=== PATIENT | female | born 1940 | race Caucasian/White ===

== ENCOUNTER 2016-07-19 13:43 | Inpatient (IN) | payer MEDICARE ==
[~2016-07-19] VITALS: Ht 157.5 cm; Wt 55.4 kg
[2016-07-19 15:10] VITALS: PULSE 75
[2016-07-19 15:11] VITALS: BP 118/54; PULSE 80; RESP 17; O2SAT 100
[2016-07-19] MEDS ORDERED: METO-272 PO (15:40)
--- NOTE | 2016-07-19 16:07 | NUR ---
Admit Patient admitted from [facility] ED where she presented with dyspnea and fatigue and was found to be in A fib with RVR. Per report from ED RN patient was cardioverted 3 times, the third time being successful at converting her to SR. patient SR in the 80s since arrival on the floor. Patient A&Ox3, VSS, denies pain. C/O dyspnea with activity. SPO2 remains in the high 90s on 2L NC. Patient oriented to rrom and call light. Resting in bed with eyes closed, call light with in reach.
[2016-07-19] MEDS ORDERED: FLUT9.9S NASAL (16:43)
[2016-07-19] MEDS ORDERED: MONT10TA23 PO (16:43)
[2016-07-19] MEDS ORDERED: BENZ100C8 PO (16:43)
[2016-07-19] MEDS ORDERED: DOXY100C PO (16:43)
[2016-07-19] MEDS ORDERED: RANI150C4 PO (16:43)
[2016-07-19] MEDS ORDERED: CHOL100045 PO (16:43)
[2016-07-19] MEDS ORDERED: PARO10TA2 PO (16:43)
[2016-07-19] MEDS ORDERED: ASCO250T7 PO (16:43)
[2016-07-19] MEDS ORDERED: RIVA20TA PO (16:43)
[2016-07-19] MEDS ORDERED: ATOR20TA PO (16:43)
[2016-07-19] MEDS ORDERED: MULT1CAP33 PO (16:43)
[2016-07-19] MEDS ORDERED: GLUC1TAB20 PO (16:43)
[2016-07-19] MEDS ORDERED: ALBU8.5H2 INHALATION (16:43)
--- NOTE | 2016-07-19 16:43 | NUR ---
Med Rec Patients med rec done per med list recieved from [facility] and patient verification. Faxed Antoinette in [place] to request official med list.
--- NOTE | 2016-07-19 17:03 | CONS ---
[address] [address] CONSULTATION REPORT PATIENT: ROBERT STEVENS : 1940 MR#: [id number] ADMIT: 07/19/2016 JOB ID: [id number] DATE OF SERVICE: 07/19/2016 CARDIOLOGY CONSULT: REASON FOR CONSULT: For the evaluation of atrial fibrillation with fast ventricular rate. CHIEF COMPLAINT: From last nine or 10 days she has been having worsening cough with yellowish, sputum shortness of breath, some pleuritic type of chest pain, malaise, fatigue. 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 Sanchez in [place] and was started on anticoagulation about two and half years ago, also has a loop recorder which was implanted by Dr. Loving in [place] as she has established social science teacher over there as well, details not available, on Xarelto and metoprolol for a long time, history of essential hypertension, intermittent hyperlipidemia, got admitted because of above-mentioned chief complaint. Today she was seen at [facility] because of above-mentioned symptoms. According to the patient, her symptoms started about nine or 10 days ago when she started having cough which started getting worse, with yellowish productive sputum. This Sunday she was seen by PCP, who started her on antibiotics for right side pneumonia. She continued to deteriorate. She had diarrhea. Upon standing she was getting lightheadedness, hence she was seen at the [facility]. During evaluation she was found to have atrial fibrillation with fast ventricular rate. She was already on anticoagulation, hence ER physician tried to cardiovert her. She had multiple attempts which were successful only briefly, but later on the patient converted to sinus rhythm spontaneously. She was started on amiodarone drip. She was referred to our facility for further management. At present, she is lying on bed. She is still coughing. She is not having any typical anginal chest pain. She denies any fever, chills, or PND, orthopnea. At present she is not actively wheezing. She denies any known history of coronary artery disease or myocardial infarction or congestive heart failure or rheumatic heart disease or sudden cardiac in the family. According to the [facility] note she had an echocardiogram in March 2015 and at that time LV ejection fraction was 65%. I do not have the official report. There is a history of excessive caffeine intake, however she denies any alcohol intake for the last four years. No history of sleep apnea. No active bleeding issues. PAST MEDICAL HISTORY: History of WPW syndrome for which she underwent ablation in 1994 and 2000 in [place]. On top of that, the patient has paroxysmal AFIB for which she sees Dr. Sanchez in [place], on anticoagulation for a long time with Xarelto 20 mg daily as well as metoprolol 20 mg daily. History of loop recorder, essential hypertension, hyperlipidemia, breast surgery, breast cyst removal, hysterectomy, tonsillectomy, oophorectomy. PAST SURGICAL HISTORY: As stated above. ALLERGIES: CODEINE AND HYDROCODONE. SOCIAL HISTORY: Denies any current tobacco abuse or alcohol abuse. FAMILY HISTORY: Positive for stroke, hypertension, dementia. REVIEW OF SYSTEMS: Ten point review of systems were obtained and they are negative except as stated above. MEDICATIONS: Atorvastatin 20 mg daily. Vitamins. She was on doxycycline 100 mg twice a daily. Albuterol inhaler, metoprolol succinate 50 mg daily and 25 mg additional if she feels palpitations, Singulair 10 mg daily, Flexeril 2.5 mg daily, Xarelto 20 mg daily, ranitidine 150 mg twice a day, multivitamins. PHYSICAL EXAMINATION: Blood pressure 118/54, heart rate 80, respiratory rate 17, oxygen saturation 100%. HEENT: No significant anemia, jaundice. Neck: No apparent JVP or carotid bruit. Chest: No obvious crepitation or rhonchi. CVS: S1, S2 normal. No S3, no S4. No significant murmur. Abdomen: No obvious pulsatile mass. No obvious hepatosplenomegaly. Extremities: No significant pedal edema. Vascular: No evidence of critical limb ischemia. MICROECONOMICS PROFESSOR: Alert. Oriented to time, place, and person. No obvious motor or sensory deficit. According to the notes from [facility] her sodium was 128, calcium 8.3, hematocrit 34.7. I do not have the other results. EKG today at 9:43 a.m. at [facility] revealed underlying atrial flutter/fib with narrow QRS complexes, rate about 133, with QTc about 455 msec. During sinus rhythm the patient had heart rate about 95. CA interval 156 msec. There is no short CA interval. I do not see any obvious pre-excitation phenomena. No significant ST-T changes. The patient has some PACs as well. ASSESSMENT AND PLAN: Episode of atrial flutter/fibrillation in the setting of pneumonia with fast ventricular rate status post multiple cardioversions with known history of paroxysmal atrial fibrillation on top of history of Vcdov-[id number]-Nxflj syndrome for which she underwent ablation in 1994 in 2000, which according to the patient was taken care of without any recurrence of tachycardia due to WPW syndrome. Clinically, on my physical examination at present, she is in sinus rhythm. On telemetry she is in sinus rhythm as well. During sinus rhythm the patient does not have evidence of pre-excitation. CA interval is not short. QRS is not wide. The patient has established senior report developer, Dr. Sanchez, in [place] whom she saw about six months ago. She also has a loop recorder which was imparted by her social science teacher in [place]. She was started on amiodarone drip at [facility] [place] today. For short term, up until tomorrow, we will continue to prevent recurrence of atrial fibrillation. However, I do not think that she will need long-term amiodarone. Will discontinue amiodarone tomorrow. Once pneumonia gets better, I think flutter and atrial fibrillation will get better as well. According to her, she does not get frequent episodes of atrial fibrillation or flutter. She was taking metoprolol succinate 50 mg once a day. At present, she is not actively wheezing. From tomorrow onward will recommend increasing metoprolol succinate to 50 mg in the morning and 25 mg in the evening and continue Xarelto 20 mg once a day. Repeat a limited echo to make sure there is no new structural heart disease or LV dysfunction. Check all the electrolytes as well as TSH. Stop amiodarone in the morning. Once she feels better and pneumonia gets better we will recommend her to be seen by her regular senior report developer, Dr. Sanchez in [place]. She has hyponatremia which is likely due to underlying pneumonia, which may be atypical pneumonia which can cause hyponatremia. Further workup I will leave up to the hospitalist team. Thanks for the cardiology consult. TIME: Total time spent today about 70 minutes.
[2016-07-19] MEDS ORDERED: Fluticasone 0.05% 15 Spray/2 Gm 16 Gm Nasal Spray NASAL PRN (18:20)
[2016-07-19] MEDS ORDERED: Amiodarone 150 mg/100 mL D5W 150 MG in IV Premix 1 EACH IV ONE (18:25)
[2016-07-19] MEDS ORDERED: Amiodarone 360 mg/200 mL D5W Premix IV ONE ×2 (19:18→23:00)
[2016-07-19] MEDS ORDERED: IV Premix 1 EACH IV ONE ×2 (19:18→23:00)
[2016-07-19 19:30] VITALS: BP 101/47; PULSE 90; RESP 23; O2SAT 99
[2016-07-19] MEDS: Amiodarone 360 mg/200 mL D5W 360 MG, Filter, Taxol 14256-28 1 EACH in IV Premix 1 EACH IV SCH (19:31)
--- NOTE | 2016-07-19 19:59 | PCM.HPMED ---
Subjective Date of Service Jul 19, 2016 Primary Provider: Admitting Physician: Brett Randle MD Primary Care Physician: David Shoemaker MD Attending Physician: Brett Randle MD Chief Complaint: Atrial fibrillation with rapid ventricular response History of Present Illness: This is a 76 is a female with past medical history of hypertension, hyperlipidemia, blood disorder, paroxysmal atrial fibrillation was transferred to [facility] due to refractory atrial fibrillation with rapid ventricular response. This Sunday she was seen by PCP, who started her on antibiotics for right side pneumonia. She continued to deteriorate. She had diarrhea. Upon standing she was getting lightheadedness, hence she was seen at the [facility] at Sunday. During evaluation she was found to have atrial fibrillation with fast ventricular rate. She was already on anticoagulation, hence ER physician tried to cardiovert her. She had multiple attempts which were successful only briefly, but later on the patient converted to sinus rhythm spontaneously. She was started on amiodarone drip. She was referred to our facility for further management. At the time of examination patient was already on amiodarone drip and sole seamer shows, sinus rhythm Review of Systems: A comprehensive 10 point is negative except for what is described above in history of present illness. Allergies Coded Allergies: azithromycin (Verified Adverse Reaction, Intermediate, Nausea,Vomiting, ) codeine (Verified Adverse Reaction, Intermediate, Nausea,Vomiting, 07/19/16 ) Home Medications Xarelto; 20 mg orally daily, [id number] mg orally twice a day, paroxetine 10 mg PO daily, ranitidine 150 mg , Metoprolol ER 50 mg PO daily, fluticasone inhaler, Montelukast 10 mg, atorvastatin 20 mg, [facility] Hypertension, hypercholesterol, paroxysmal atrial fibrillation Surgical History breast cyst removal, hysterectomy, tonsillectomy, oophorectomy. Family History Family history reviewed. 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 HEENT: PERRL, sclerae anicteric, no bulging tympanic membrane Mouth: moist oral mucosa, no oral thrush Chest: No chest wall tenderness, no deformity, normal etc. Lungs: Clear bilaterally to auscultation, no wheezing, no crackle. Heart: S1S2, irregular rate and rhythm no gallop no murmur. Abdomen: Soft nontender, nondistended. No palpable mass. Extremity: No edema, no cyanosis, tenderness Neuro : Awake, alert, oriented 3. Mostly nonfocal Lab and Diagnostics Labs Pending X-Rays, CTs and MRIs Report of x-ray done at [facility] reviewed No acute cardiopulmonary disease 12-lead ECG Normal sinus rhythm Assessment & Plan 1. Atrial Fibrillation with rapid ventricular response : Patient had cardioversion 3 today and hospital, and return to A. fib with RVR each time. She eventually converted to normal sinus rhythm after amiodarone drip. Seen by cardiology accommodation is to continue amiodarone drip overnight and discontinue in the morning. She is additionally on metoprolol. Continue Xarelto 20 mg orally daily for stroke prevention. Patient is known to have history of paroxysmal atrial fibrillation. This episode was likely provoked by her respiratory infection 2. Pneumonia : Improved Continue doxycycline to complete 7 days . 3. Hypertension : Controlled Patient is clinically and hemodynamically improved. Plan of care as above, Echocardiogram pending/ Discharge home once cleared by surgery VTE Prophylaxis: Other (on anticoagulation with Xarelto ) Time spent 75 minutes Antwan Verdugo MD Jul 19, 2016 19:59
[2016-07-19] MEDS: PARoxetine 20 mg Tablet PO SCH (20:53)
[2016-07-19 23:17] VITALS: BP 106/48; PULSE 75; RESP 19; O2SAT 94
[2016-07-20] VITALS (8 sets, daily range): BP systolic 110–157; BP diastolic 57–89; PULSE 70–98; RESP 18–20; O2SAT 94–97
[2016-07-20] MEDS: Amiodarone 360 mg/200 mL D5W 360 MG, Filter, Taxol 14256-28 1 EACH in IV Premix 1 EACH IV SCH (01:39)
[2016-07-20 03:03] LABS: Mean Corpuscular Hemoglobin 29.8 pg (27.0-35.0); Mean Corpuscular Volume 90.4 fL (81-100)
--- NOTE | 2016-07-20 05:29 | NUR ---
Tele/ Amiodarone Pt A&O X3, moves all extremities. No c/o SOB, RA sats 94-99%. No c/o chest pain, pressure or palpitations, Tele SR with frequent PACs, HR 70-90s. VSS and afebrile. IV Amiodarone drip infusing overnight per MD orders, currently at 16.7mls/hour. Pt up to BSC with SBA, gait steady.
[2016-07-20] MEDS: MeTOProlol XL 50 mg ER24 Tablet PO SCH (09:07)
[2016-07-20] MEDS ORDERED: HYDROCODONE PO PRN ×2 (11:05→11:45)
[2016-07-20] MEDS ORDERED: HOMATROPINE PO PRN (11:05)
[2016-07-20 11:40] LABS: COLOR,URINE STRAW (YELLOW)
[2016-07-20 11:41] LABS: APPEARANCE,URINE CLEAR (CLEAR,HAZY); OCCULT BLOOD,URINE NEGATIVE (NEGATIVE); PH,URINE 5.5 (5.0-8.0); UROBILINOGEN,URINE NORMAL (NORMAL)
[2016-07-20] MEDS ORDERED: HOMATROP PO PRN (11:45)
--- NOTE | 2016-07-20 11:59 | DRSVH ---
[facility] [address] [place] [address] Echocardiogram Report Name: ROBERT STEVENS Date: 07/19/2016 Height: 62 in Hospital Exam Location: [facility] Weight: 124 lb Gender: Female BSA: 1.6 m2 : 1940 Age: 76 yrs BP: 118/54 mmHg Reason For Study: Atrial fibrillation Performed By: Yvette Khanna Referring Physician: GEORGE MACHADO Interpretation Summary The left ventricle is normal in size. The ejection fraction is estimated to be 65-70%. The right ventricle is normal size. The right ventricular systolic function is normal. The left atrium is severely dilated. There is moderate mitral regurgitation. The mitral regurgitant jet is eccentrically directed. There is moderate tricuspid regurgitation. The right ventricular systolic pressure is estimated at 27 mmHg assuming a right atrial pressure of 3 mm Hg. Procedure: A two-dimensional transthoracic echocardiogram with color flow and Doppler was performed. The study quality was technically good. There is no prior echocardiogram noted for this patient. The patient was in normal sinus rhythm during the exam. Left Ventricle: The left ventricle is normal in size. Proximal septal thickening is noted. There is no echo evidence for significant left ventricular outflow tract obstruction. There is no thrombus. A false chord is noted (normal variant). The ejection fraction is estimated to be 65-70%. There are no focal wall motion abnormalities. Spectral Doppler of the mitral valve shows a normal E/A wave ratio. The E/E' ratio is abnormal. Right Ventricle: The right ventricle is normal size. The right ventricular systolic function is normal. Atria: The left atrium is severely dilated. The right atrium is mildly dilated. The interatrial septum is intact with no evidence for an atrial septal defect. Mitral Valve: There is mild mitral annular calcification. The mitral valve leaflets are slightly calcified. There is moderate mitral regurgitation. The mitral regurgitant jet is eccentrically directed. Aortic Valve: The aortic valve is trileaflet. The aortic valve opens well. No aortic regurgitation is present. Tricuspid Valve: The tricuspid valve is normal. There is moderate tricuspid regurgitation. The right ventricular systolic pressure is estimated at 27 mmHg assuming a right atrial pressure of 3 mm Hg. Pulmonic Valve: The pulmonic valve is not well visualized. Great Vessels: The aortic root is normal size. The IVC is of normal diameter and collapses greater than 50% with a sniff. This suggests a low right atrial pressure of 3 mm Hg. Pericardium/ Pleura There is no pericardial effusion. There is an anterior echo-free space consistent with a fat pad. There is no pleural effusion. MMode/2D Measurements & Calculations LVIDd: 4.2 cm LA dimension: 3.5 cm RA long axis Ao root diam LVIDs: 2.6 cm FS: 36.9 % LA A2 area: 26.8 cm RA area Aortic Jxn IVSd: 0.79 cm LA A4 area: 23.6 cm : 2.7 cm LVPWd: 0.78 cm LA length (vol): 5.5 cm : 13.7 cm LA vol: 97.1 ml RA vol: 36.2 ml LA vol index RA : 23.2 mm2 IVC diam: 1.6 cm LV acosta. diameter/BSA LV sys. diameter/BSA (cm/m^2): 2.7 (cm/m^2): 1.7 Doppler Measurements & Calculations MV E max john MV E/A: 1.8 TR max john MV dec time : 163.3 cm/sec Med Peak E' John : 245.4 cm/sec : 0.18 sec MV A max john TR max PG : 93.2 cm/sec E/E' med: 18.1 : 24.1 mmHg MV P1/2t: 56.1 msec Lat Peak E' John PA V2 max : 79.7 cm/sec E/E' lat: 20.4 PA mean PG E/e' average: 19.2 Pulm A Revs Dur PA Accel Time MV P1/2t max john MR flow rate PA V2 mean : 54.0 cm/sec : 118.3 cm3/sec MVA(P1/2t): 3.9 cm2 MR PISA radius Reading Physician:MILA
--- NOTE | 2016-07-20 13:10 | PROG NOTE ---
[address] [address] PROGRESS NOTE PATIENT: ROBERT STEVENS : 1940 MR#: [id number] ADMIT: 07/19/2016 JOB ID: [id number] DATE: 07/20/2016 SUBJECTIVE: Patient lying on bed. She is not having any palpitations or worsening shortness of breath or typical chest pain but still coughing. 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 Acosta in [place], on anticoagulation with Xarelto, also has a loop recorder which was implanted by Dr. Loving in [place], on metoprolol succinate 50 mg daily for a long time with essential hypertension, hyperlipidemia, was transferred from [place] to our facility as she presented over there with 10 days history of worsening cough, yellowish sputum, shortness of breath, some pleuritic chest pain, malaise, fatigue. She was recently diagnosed with right lung pneumonia as well. Yesterday at [place] she was found to be in atrial fibrillation with fast ventricular rate. She had multiple cardioversion and she was started on amiodarone. She was transferred to our facility. She underwent echocardiogram yesterday which revealed normal size left ventricle with LV ejection fraction 65%-70%, normal right ventricular function. Left atrium was severely dilated. There was mild mitral annulus calcification and slightly calcified mitral leaflet with moderate mitral regurgitation. It was an eccentric jet. Moderate tricuspid regurgitation. Pulmonary artery systolic pressure about 27 mmHg with right atrial pressure about 3 mmHg. OBJECTIVE: Blood pressure 157/89, heart rate 76, respiratory rate 20, oxygen saturation 96%. Neck: No apparent JVP. Chest: Decreased air entry at the bases with some coarse crepitations. CVS: S1, S2 normal. No S3, no S4. On my physical examination today, I do not appreciate any significant murmur. Abdomen: No obvious pulsatile mass or hepatosplenomegaly. Extremities: No pedal edema. Vascular: No evidence of critical limb ischemia. AUTOMATIC BEADING LATHE OPERATOR: Alert, oriented to time, place and person. Telemetry: The patient in sinus rhythm without any recurrence of atrial fibrillation flutter. LABORATORIES: Sodium 134, potassium 3.9, BUN 9, creatinine 0.66. Normal bilirubin, AST, ALT. Total cholesterol 123. LDL 64, HDL 43. TSH 1.74. WBC 6.3, hemoglobin 9.9, hematocrit 30. ASSESSMENT/PLAN: Episode of atrial flutter fibrillation in the setting of pneumonia, respiratory infection status post multiple cardioversions yesterday and was started on amiodarone with known history of WPW syndrome for which she underwent ablation in 1994, 2000 with known history of paroxysmal AFib on metoprolol and Xarelto for a long time, who has established escalator installer, Dr. Acosta at [place]. Clinically, she does not appear to be in obvious heart failure. I told her about moderate mitral regurgitation. The patient told me that she knows about valve problem. I do not see any strong indication at this point of time to continue amiodarone for intermission coordinator. Hence will discontinue. Once her pulmonary condition gets better, her atrial flutter fibrillation will get better as she was not getting any frequent episodes in the past. Most likely trigger is respiratory infection. Will increase metoprolol succinate to 50 mg in the morning and 25 mg in the evening. She is anemic too. However, at present she denies any active major bleed. Denies any black stool. She is not having evgeny hemoptysis. Management of anemia workup I will leave up to our hospitalist team. Her sodium has improved. Check her magnesium as well. From Cardiology perspective, at this point of time, we will sign off. The patient to see her escalator installer, Dr. Acosta, as an outpatient. Feel free to call us if he needs any further assistance. Tomorrow my associate, Dr. Cooney, will be available to see the patient. Total time spent today about 40 minutes.
--- NOTE | 2016-07-20 14:06 | PCM.PNMED ---
Subjective Date of Service Jul 20, 2016 Subjective 76-year-old woman with history of ablation for WPW presents with atrial fibrillation and rapid ventricular response precipitated by respiratory infection Today the patient reports nausea without vomiting. No abdominal pain. This is been present for approximately 3 days. New symptom. There are no exacerbating or palliating factors. She also reports diarrhea for 1 day with several loose stools. No fevers or chills. She continues to feel dizzy or lightheaded, even when lying down. She feels generally weak and unable to manage usual level of activity at home. Exam Vital Signs Vital Sign - Last Date Time Temp Pulse Resp B/P Pulse Ox O2 Delivery O2 Flow Rate FiO2 07/20/16 11:59 36.8 76 20 157/89 96 Room Air Intake and Output 07/19/16 07/19/16 07/20/16 Cumulative From/Thru 15:00 23:00 07:00 07/19/16 15:11 - 07/20/16 04:51 Intake Total 0 ml 1504 ml 1504 ml Output Total 400 ml 1800 ml 2200 ml Balance -400 ml -296 ml -696 ml Intake Oral 0 ml 1150 ml 1150 ml IV Total 354 ml 354 ml Output Urine Total 400 ml 1800 ml 2200 ml # Bowel Movements 1 1 2 Exam General: Somewhat pale appearing, no acute distress HEENT: sclerae anicteric, oral mucosa moist Neck: no JVD Chest: Frequent cough, lung joshua are clear to auscultation, no wheeze or rhonchi Cardiac: S1S2, regular, no murmur Abdomen: BS normal, non-tender Extremities: No pitting edema Neuro: A&O, cranial nerves symmetric, motor strength 5/5, coordination normal IVs and Medications Medications Reviewed: Medications were reviewed in detail Lab and Diagnostics Result Diagram: 07/20/1625407/20/16 025 X-Rays, CTs and MRIs Report of x-ray done at [facility] reviewed No acute cardiopulmonary disease 12-lead ECG Normal sinus rhythm Assessment & Plan #. Atrial Fibrillation with rapid ventricular response : Patient had cardioversion 3 today and hospital, and return to A. [facility] with RVR. Amiodarone bolus and drip initiated. She converted to sinus rhythm within 12 hours. Patient is known to have history of paroxysmal atrial fibrillation. This episode was likely provoked by her respiratory infection. - discontinue amiodarone. - Increase metoprolol succinate 50 mg every morning to 50 every morning +25 every afternoon. - Continue Xarelto 20 mg orally daily for stroke prevention. #. Possible community-acquired Pneumonia, acute. : Verbal report of chest x- ray at [facility] indicated no infiltrate. She is afebrile with no significant purulent phlegm. She had no leukocytosis. She appears to have bronchitis likely viral possibly allergic. - Chest x-ray 2 views - Discontinue Doxycycline #. Nausea and diarrhea. Acute. Suspect this is doxycycline. Low probability of primary gastroenteritis or bowel problem. Diarrhea does not seem significant enough significant enough to warrant workup - Discontinue doxycycline - Famotidine - Antiemetics as needed - Calcium carbonate as needed #. Presyncope, acute. Likely due to tachycardia induced diuresis, and general illness. - Push by mouth intake - Encourage ambulation today #. Hypertension : Controlled Venous thromboembolism prophylaxis on rivaroxaban. Disposition: Anticipate discharge in a.m. on 07/20 Pain Evaluation: Adequate Pain Control VTE Prophylaxis: Other (on anticoagulation with Xarelto ) Resuscitation Status: CPR: Attempt Resuscitation Time spent 35 minutes Juan A Jensen MD Jul 20, 2016 14:06
--- NOTE | 2016-07-20 14:19 | DRSVH ---
PROCEDURE: X-RAY CHEST, TWO VIEWS ([id number]) INDICATIONS: SHORTNESS OF BREATH; RULE OUT PNEUMONIA TECHNIQUE: 2 views of the chest were acquired. COMPARISON: Outside Facility, RG, XR CXR 1V, 06/04/2012, 13:47. FINDINGS: Surgical changes and devices: None. Lungs and pleura: No pleural effusions or pneumothorax. Airspace opacity involves the left lower lo be. Mediastinum: Mediastinal contours are normal. Heart size is normal. Bones and chest wall: No suspicious bony abnormalities. Soft tissues appear unremarkable. IMPRESSION: Findings suspicious for left lower lobe pneumonia. Continued radiographic surveillance to resolution is recommended. Dictated by: Iron PATEL Interpreted: Blanka Brower MD on 07/20/2016 at 14:16 Transcribed by: BLAYNE on 07/20/2016 at 14:18 Approved by: Blanka Brower M.D. on 07/20/2016 at 17:06
--- NOTE | 2016-07-20 15:02 | NUR ---
Social Work: Initial Assessment D: Per EMR review, pt is a 76 year old female admited for tachycardia. Pt is Medicare with A[employer] Supplement; Pt has no LTC insurance or VA benefits. PCP is Will Shoemaker MD. Identified support person is pt's daughter, Berta Benjamin, dtr, . Advanced directives completed but not on chart- NUCLEAR REACTOR TECHNICIAN requested these from pt. Readmit score not entered at this time. NUCLEAR REACTOR TECHNICIAN met with pt at bedside. Sw role explained and contact information provided. See initial assessment. Pt lives [place] home [place]. 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 Pt uses no DME and continues to drive. Pt has never had Home Health or Skilled Rehab. Pt anticipates discharge home once medically stable but expresses concerns with taking a ferry. Pt would like help possibly arranging a private flight home. NUCLEAR REACTOR TECHNICIAN informed her that it would be a private pay expense but that case management could find several [facility] companies for her to call to make arrangements. EMR reviewed; pt has been I during admission. No sw needs identified other than assistance with transportation home. A: Pt who is I at baseline. P: Anticipate pt to discharge home when medically stable; NUCLEAR REACTOR TECHNICIAN to follow up with pt on local companies who may be able to fly pt home. NUCLEAR REACTOR TECHNICIAN to continue to follow. JANET Jung Addendum: 07/20/16 at 1507 by MICHELE CHANDLER SS Amended: Links added. Addendum: 07/20/16 at 1625 by MICHELE CHANDLER SS NUCLEAR REACTOR TECHNICIAN provided pt with list of three local airlines who provide private flights to [place]. Pt states she will likely use [employer] and will book her flight when she gets closer to d/c.
--- NOTE | 2016-07-20 15:39 | NUR ---
Hydrocodone allergy MD ordered cough syrup with hydrocodone PRN for coughing. Patient requested medication, medication given as ordred, patient was told name of medication prior to administration. After taking medication patient stated, : Actually I think I am allergic to hydrocodone. MD notified and allergy list updated. Patient has had no adverse reaction to medication. Will continue to monitor closely.
--- NOTE | 2016-07-20 18:04 | NUR ---
Xarelto Patient has xarelto ordered for 1700. Patient states she always takes it with her dinner and would like it held until her dinner arrives. Will administer med later when dinner has arrived. MD lipscomb
[2016-07-20] MEDS: PARoxetine 20 mg Tablet PO SCH (21:00)
[2016-07-20] MEDS: MeTOProlol XL 25 mg ER24 Tablet PO SCH (21:10)
[2016-07-21] VITALS (7 sets, daily range): BP systolic 131–144; BP diastolic 73–97; PULSE 81–100; RESP 16–22; O2SAT 95–97
--- NOTE | 2016-07-21 04:40 | NUR ---
Nausea Pt c/o nausea at HS, stating stomach upset and wasn't able to eat dinner, pt suspects adverse effect of prior doxycycline. 4mg Zofran administered, no further c/o nausea. VSS, tele SR 90s. Pt resting comfortably throughout shift.
[2016-07-21] MEDS: MeTOProlol XL 50 mg ER24 Tablet PO SCH (08:56)
--- NOTE | 2016-07-21 10:00 | NUR ---
spiritual care: pt request (late entry) visit per pt request yesterday late pm. pt shared longstanding thoughts and relationship to current medical situation. supportive listening and prayer.
--- NOTE | 2016-07-21 12:31 | NUR ---
took over patient care 1230 pm
[2016-07-21] MEDS ORDERED: 0.9% Sodium Chloride 100 ML ONE (14:08)
[2016-07-21] MEDS: cefTRIAXone Inj 1,000 MG in Dextrose 5% Minibag Plus 50 ML IV SCH (14:13)
--- NOTE | 2016-07-21 14:47 | PCM.PNMED ---
Subjective Date of Service Jul 21, 2016 Subjective 76-year-old woman with history of ablation for WPW presents with atrial fibrillation and rapid ventricular response precipitated by respiratory infection Today the patient continues to report nausea without vomiting. No abdominal pain. Discontinued of doxycycline did not affect this. She continues to feel dizzy or lightheaded, even when lying down. She feels generally weak and unable to manage usual level of activity at home. Exam Vital Signs Vital Sign - Last Date Time Temp Pulse Resp B/P Pulse Ox O2 Delivery O2 Flow Rate FiO2 07/21/16 12:10 36.8 89 20 133/74 95 Room Air Intake and Output 07/20/16 07/20/16 07/21/16 Cumulative From/Thru 15:00 23:00 07:00 07/19/16 15:11 - 07/21/16 05:16 Intake Total 822 ml 500 ml 2826 ml Output Total 1200 ml 1400 ml 4800 ml Balance -378 ml -900 ml -1974 ml Intake Oral 720 ml 500 ml 2370 ml IV Total 102 ml 456 ml Output Urine Total 1200 ml 1400 ml 4800 ml # Bowel Movements 1 3 Exam General: Somewhat pale and fatigued appearing, no acute distress HEENT: sclerae anicteric, oral mucosa moist Neck: no JVD Chest: Frequent cough, lung joshua are clear to auscultation, no wheeze or rhonchi Cardiac: S1S2, regular, no murmur Abdomen: BS normal, non-tender Extremities: No pitting edema Neuro: A&O, cranial nerves symmetric, motor strength 5/5, coordination normal IVs and Medications Medications Reviewed: Medications were reviewed in detail Lab and Diagnostics Result Diagram: 07/20/16 0255 07/20/16 025 X-Rays, CTs and MRIs Report of x-ray done at [facility] reviewed No acute cardiopulmonary disease PROCEDURE: X-RAY CHEST, TWO VIEWS ([id number]) IMPRESSION: Findings suspicious for left lower lobe pneumonia. Continued radiographic surveillance to resolution is recommended. Dictated by: Iron PATEL Interpreted: Blanka Brower MD on 07/20/2016 at 14:16 12-lead ECG Normal sinus rhythm Assessment & Plan #. Atrial Fibrillation with rapid ventricular response : Patient had cardioversion 3 today and hospital, and return to A. fib with RVR. Amiodarone bolus and drip initiated. She converted to sinus rhythm within 12 hours. Patient is known to have history of paroxysmal atrial fibrillation. This episode was likely provoked by her respiratory infection. - discontinue amiodarone. - Increase metoprolol succinate 50 mg every morning to 50 every morning +25 every afternoon. - Continue Xarelto 20 mg orally daily for stroke prevention. #. Community-acquired Pneumonia, acute. Clinical symptoms of malaise, anorexia and increased cough, but no significant phlegm. She is afebrile, and had no leukocytosis. She appears to have left lower lobe pneumonia. This seems likely causing her weakness, presyncopal sensation and possibly her gastric distress - Chest x-ray 2 views - Discontinue Doxycycline - Continue with ceftriaxone at present, she has azithromycin allergy, but received 3 days of doxycycline #. Nausea. Acute. Unclear whether this is adverse drug reaction versus gastric acidity stimulated. Discontinuation of doxycycline did not affect this. She is on no other new medications. Abdominal exam is benign. Low probability of primary gastroenteritis or bowel problem. Diarrhea does not seem significant enough significant enough to warrant workup. - Continue Famotidine - Antiemetics as needed - Calcium carbonate as needed #. Presyncope, acute. Likely due to tachycardia induced diuresis, and general illness. - Push by mouth intake - Encourage ambulation today #. Hypertension : Controlled Venous thromboembolism prophylaxis on rivaroxaban. Disposition: Anticipate discharge in a.m. on 07/21 VTE Prophylaxis: Other (on anticoagulation with Xarelto ) Resuscitation Status: CPR: Attempt Resuscitation Time spent 35 minutes Juan A Jensen MD Jul 21, 2016 14:47
--- NOTE | 2016-07-21 18:08 | NUR ---
ABX/POC The pt's POC is to remain on the unit for another day or two. The chest xray suggest broncitis/pneumonia, and IV abx are initiated. The pt remains A&O with small episodes of anxiety.
[2016-07-21] MEDS: MeTOProlol XL 25 mg ER24 Tablet PO SCH (19:42)
[2016-07-21] MEDS: PARoxetine 20 mg Tablet PO SCH (19:43)
[2016-07-22 00:03] VITALS: BP 130/80; PULSE 93; RESP 17; O2SAT 96
--- NOTE | 2016-07-22 00:14 | NUR ---
TELE/ABO Pt A&Ox3, independent, denies pain, nausea or anxiety. Pt off amio gtt, was A-fib RVR, but currently SR per tele. Pt's vitals stable, no other issues noted at this time. Pt to be discharged after 1-2 days of IV ABO r/t lower left lobe pneumonia.
[2016-07-22 04:27] VITALS: BP_SYST 154; BP_SYST 160; BP_SYST 165; BP_DIAS 101; BP_DIAS 80; BP_DIAS 93; PULSE 94; RESP 20; O2SAT 96
--- NOTE | 2016-07-22 04:52 | NUR ---
ORTHOSTATIC BLOOD PRESSURE laying 154/80 sitting 160/101 standing 165/93
[2016-07-22 05:16] VITALS: PULSE 68
[2016-07-22 09:05] VITALS: PULSE 70
[2016-07-22 09:13] VITALS: BP 148/69; PULSE 77; RESP 18; O2SAT 95
[2016-07-22] MEDS: MeTOProlol XL 50 mg ER24 Tablet PO SCH (09:23)
[2016-07-22] MEDS: cefTRIAXone Inj 1,000 MG in Dextrose 5% Minibag Plus 50 ML IV SCH (09:24)
[2016-07-22] MEDS ORDERED: METO25TA99 PO (11:23)
--- NOTE | 2016-07-22 11:27 | PCM.DIMED ---
Discharge Instructions Date of Service Jul 22, 2016 Dates of Hospitalization Jul 19, 2016 at 14:45 Discharge Diagnosis Discharge Diagnosis Atrial fibrillation with rapid ventricular response; pneumonia of the left lower lobe Medication Instructions Your rapid atrial fibrillation returned to sinus rhythm. Our director of radiology recommended a small increase in your metoprolol dose. An additional 25 mg dose at bedtime has been added and the prescription transmitted to the pharmacy. Diet No restrictions Activity No restrictions Call your provider Shortness of breath Patient Instructions Follow-up plan Contact her director of radiology in [place] for a follow-up appointment regarding atrial fibrillation. Check-in with your primary care doctor Dr. Shoemaker regarding any cough or respiratory symptoms. Follow-up Provider: David Shoemaker MD Follow-up with PCP in: 1 week Juan A Jensen MD Jul 22, 2016 11:27
[2016-07-22 12:03] VITALS: BP 153/85; PULSE 80; RESP 18; O2SAT 95
--- NOTE | 2016-07-22 14:50 | NUR ---
Discharge The pt left the unit at 1420 with all her belongings and her packet of discharge info - including follow up info, new scripts and educational materials. The pt verbalized understanding of all presented info. The pt left via wheelchair to a private vehicle, where she will be transported to the [facility], then flown to [place]. The pt left with vitals WNL, and A&Ox3.
--- NOTE | 2016-07-22 19:09 | PCM.DC.MED ---
Discharge Summary Date of Service Jul 22, 2016 Dates of Hospitalization Date of Hospital Admission Jul 19, 2016 at 14:45 Date of Discharge: Jul 22, 2016 Providers: Admitting Physician: Brett Randle MD Primary Care Physician: David Shoemaker MD Attending Physician: Brett Randle MD Diagnosis at Time of Discharge Diagnosis at Time of Discharge Atrial fibrillation with rapid ventricular response; pneumonia of the left lower lobe Consultations Cardiology, Dr. Sahara Quezada Procedures XRay, CTs & MRIs Report of x-ray done at [facility] reviewed No acute cardiopulmonary disease PROCEDURE: X-RAY CHEST, TWO VIEWS ([id number]) IMPRESSION: Findings suspicious for left lower lobe pneumonia. Continued radiographic surveillance to resolution is recommended. Dictated by: Iron Reina RRA Interpreted: Blanka Brower MD on 07/20/2016 at 14:16 ECG 12 Lead Normal sinus rhythm Brief History History of Present Illness (per admission note): This is a 76 is a female with past medical history of hypertension, hyperlipidemia, blood disorder, paroxysmal atrial fibrillation was transferred to [facility] due to refractory atrial fibrillation with rapid ventricular response. This Sunday she was seen by PCP, who started her on antibiotics for right side pneumonia. She continued to deteriorate. She had diarrhea. Upon standing she was getting lightheadedness, hence she was seen at the [facility] at Sunday. During evaluation she was found to have atrial fibrillation with fast ventricular rate. She was already on anticoagulation, hence ER physician tried to cardiovert her. She had multiple attempts which were successful only briefly, but later on the patient converted to sinus rhythm spontaneously. She was started on amiodarone drip. She was referred to our facility for further management. He subsequently converted to sinus rhythm. Hospital Course #. Atrial Fibrillation with rapid ventricular response : Patient had cardioversion 3 today and hospital, and return to [facility] with RVR. Amiodarone bolus and drip initiated. She converted to sinus rhythm within 12 hours. Patient is known to have history of paroxysmal atrial fibrillation. This episode was likely provoked by her respiratory infection. business system consultant felt that continued beta rex and anticoagulation was indicated. Discontinued amiodarone. TSH was normal. - Increase metoprolol succinate 50 mg every morning to 50 every morning +25 every evening. - Continue Xarelto 20 mg orally daily for stroke prevention. #. Community-acquired Pneumonia, acute. Clinical symptoms of malaise, anorexia and increased cough, but no significant phlegm. She is afebrile, and had no leukocytosis. She appears to have left lower lobe pneumonia. This seems likely causing her weakness, presyncopal sensation and possibly her gastric distress - Discontinue Doxycycline due to possible contribution to GI intolerance - Continue with ceftriaxone at present, she has azithromycin allergy, but received 3 days of doxycycline +2 days of ceftriaxone to complete five-day treatment for CAP - Her symptoms were markedly improved at time of discharge #. Nausea. Acute. Unclear whether this is adverse drug reaction versus gastric acidity stimulated. Discontinuation of doxycycline seemed to help albeit after 24 hours. She is on no other new medications. Abdominal exam is benign. Low probability of primary gastroenteritis or bowel problem. Diarrhea does not seem significant enough significant enough to warrant workup. - As IT time of discharge #. Presyncope, acute. Likely due to tachycardia induced diuresis, and general illness. - Resolved at time of discharge #. Hypertension : Controlled Exam Vital Signs (Last) Date Time Temp Pulse Resp B/P Pulse Ox O2 Delivery O2 Flow Rate FiO2 07/22/16 09:13 36.0 77 18 148/69 95 Room Air Exam General: Brighter affect today, no acute distress HEENT: sclerae anicteric, oral mucosa moist Neck: Supple no adenopathy Chest: Mild occasional cough, lung joshua are clear to auscultation, no wheeze or rhonchi Cardiac: S1S2, regular, no murmur Abdomen: BS normal, non-tender Extremities: No pitting edema Neuro: A&O, cranial nerves symmetric, motor strength 5/5, coordination normal Test 07/19/16 18:23 07/20/16 02:45 07/20/16 02:55 07/22/16 02:35 Urine Color Straw (YELLOW) Urine Appearance Clear (CLEAR,HAZY) Urine pH 5.5 (5.0-8.0) Urine Specific [place] 1.010 (1.003-1.035) Urine Protein Negativemg/dL (NEG,TRACE) Urine Glucose (UA) Negativemg/dL (NEGATIVE) Urine Ketones Negativemg/dL (NEGATIVE) Urine Occult Blood Negative (NEGATIVE) Urine Nitrite Negative (NEGATIVE) Urine Bilirubin Negative (NEGATIVE) Urine Urobilinogen Normalmg/dL (NORMAL) Urine Leukocyte Esterase Large (NEGATIVE) Urine RBC 0-2/hpf (0-2) Urine WBC 0-5/hpf (0-5) Urine Epithelial Cells Occasional/hpf (NONE-MOD) Urine Crystals None seen (NONE SEEN) Urine Bacteria Few/hpf (NONE-FEW) Urine Hyaline Casts None/lpf (NONE) Urine Granular Casts None seen (NONE SEEN) Urine Waxy Casts None seen (NONE SEEN) Urine Red Blood Cell Casts None seen (NONE SEEN) Urine White Blood Cell Casts None seen (NONE SEEN) Urine Mucus None seen (None Seen) Urine Trichomonas None seen (NONE SEEN) Urine Yeast None (NONE SEEN) Urinalysis Comment None Urine Culture Reflexed Indicated Hold Urine Received (Received) Magnesium Level 1.9mg/dL (1.6-2.6) White Blood Count 6.3th/mm3 (3.8-10.1) Red Blood Count 3.32mil/mm3 (3.90-5.20) Hemoglobin 9.9g/dL (12.0-15.6) Hematocrit 30.0% (35.0-46.0) Mean Corpuscular Volume 90.4fL (81-100) Mean Corpuscular Hemoglobin 29.8pg (27.0-35.0) Mean Corpuscular Hemoglobin Concent 33.0% (32.0-37.0) Red Cell Distribution Width 12.9% (12.3-15.4) Platelet Count 273bil/L (150-400) Hemoglobin A1c 5.6% (4.8-5.6) Triglycerides Level 78mg/dL (0-149) Cholesterol Level 123mg/dL (100-199) LDL Cholesterol, Calculated 64.400mg/dL (0-99) VLDL Cholesterol 15.600mg/dL HDL Cholesterol 43mg/dL (>39) Cholesterol/HDL Ratio 2.86 (0.0-4.4) Thyroid Stimulating Hormone (TSH) 1.740uIU/mL (0.450-4.500) Sodium Level 137mEq/L (134-144) Potassium Level 4.4mEq/L (3.5-5.2) Chloride Level 100mEq/L (97-108) Carbon Dioxide Level 25mmol/L (18-29) Blood Urea Nitrogen 8mg/dL (8-27) Creatinine 0.64mg/dL (0.57-1.00) Estimat Glomerular Filtration Rate 130mL/min (>59) Glucose Level 101mg/dL (60-99) Calcium Level 8.6mg/dL (8.5-10.1) Total Bilirubin 0.3mg/dL (0.0-1.2) Aspartate Amino Transf (AST/SGOT) 17U/L (0-50) Alanine Aminotransferase (ALT/SGPT) 13U/L (0-32) Alkaline Phosphatase 67U/L (25-165) Total Protein 5.8g/dL (6.4-8.4) Albumin 3.6g/dL (3.4-5.0) Discharge Medications Discharge Medications Ascorbic Acid (Vitamin C) 250 Mg Tab.chew 250 MG PO DAILY (Reported) Atorvastatin (Lipitor) 20 Mg Tablet 20 MG PO DAILY (Reported) Cholecalciferol (Vitamin D3) (Vitamin D) 1,000 Unit Capsule 1,000 UNIT PO DAILY (Reported) Gluc Shannon/Chondro Shannon A/Vit C/Mn (Glucosamine Chondroitin Tab) 1 Each Tablet 1 EACH PO BID (Reported) Metoprolol Succinate ER (Metoprolol Succinate ER) 50 Mg Tab.er.24h 50 MG PO DAILY (Reported) Metoprolol Succinate ER (Metoprolol Succinate ER) 25 Mg Tab.er.24h 25 MG PO HS Prescribed by: FABI WILKINS MD Montelukast (Montelukast) 10 Mg Tablet 10 MG PO HS (Reported) Multivitamin (Multivitamins) 1 Each Capsule 1 EACH PO DAILY (Reported) Paroxetine (Paroxetine) 10 Mg Tablet 2.5 MG PO HS (Reported) Ranitidine (Ranitidine) 150 Mg Capsule 150 MG PO BID (Reported) As needed Albuterol HFA (Proair HFA) 8.5 Gm Hfa.aer.ad 2 PUFFS INHALATION Q6H PRN PRN For Wheezing (Reported) Benzonatate (Benzonatate) 100 Mg Capsule 100-200 MG PO TID PRN PRN For Cough ( Reported) Fluticasone Propionate (Flonase Allergy Relief) 50 Mcg/Actuation [place].susp 9.9 ML NASAL DAILY PRN PRN For Congestion (Reported) Miscellaneous Medications Rivaroxaban (Xarelto) 20 Mg Tablet 20 MG PO (Reported) Additional med instructions Your rapid atrial fibrillation returned to sinus rhythm. Our airline hostess recommended a small increase in your metoprolol dose. An additional 25 mg dose at bedtime has been added and the prescription transmitted to the pharmacy. Followup Plan Follow-up plan Contact her airline hostess in [place] for a follow-up appointment regarding atrial fibrillation. Check-in with your primary care doctor Dr. Shoemaker regarding any cough or respiratory symptoms. Discharge Diet: No restrictions Discharge Activity: No restrictions Follow-up Provider: David Shoemaker MD Follow-up with PCP in: 1 week Time spent 35 minutes copies to: David Shoemaker MD, Jeffrey W MD Jul 22, 2016 11:28
== END 2016-07-22 14:15 | disposition home or self-care (01) | DRG 308 ==
LOC: PCC 14:45
PROVIDERS: ADMIT Internal Medicine; ATTEND Internal Medicine
PROC: 3E040RZ Introduction of Antiarrhythmic into Central Vein, Open Approach (ICD-10-PCS; principal; 2016-07-19)
DX: I48.91 Unspecified atrial fibrillation (principal); J18.9 Pneumonia, unspecified organism; I48.0 Paroxysmal atrial fibrillation; J20.8 Acute bronchitis due to other specified organisms; I10 Essential (primary) hypertension; E78.5 Hyperlipidemia, unspecified; Z79.51 Long term (current) use of inhaled steroids